=== PATIENT | female | born 1940 | race Caucasian/White ===

== ENCOUNTER 2024-06-02 09:21 | Emergency (ER) | payer MEDICARE, OTHER, SELFPAY ==
[2024-06-02 09:23] VITALS: BP 145/84
[2024-06-02 09:48] LABS: % Basophils 0.9 % (0-2); % Eosinophils 1.4 % (0-6); % Immature Granulocytes 0.4 % (0-0.5); % Lymphocytes 33.4 % (20.5-51.1); % Monocytes 8.1 % (1.7-9.3); % Neutrophils 55.8 % (42.2-75.2); Absolute Basophils 0.1 10^3/uL (0-0.2); Absolute Eosinophils 0.1 10^3/uL (0-0.7); Absolute Lymphocytes 1.9 10^3/uL (1.2-3.4); Absolute Monocytes 0.5 10^3/uL (0.1-0.6); Absolute Neutrophils 3.2 10^3/uL (1.4-6.5); Hematocrit 42.2 % (37.0-47.0); Hemoglobin 14.2 g/dL (12.0-16.0); Mean Corp Hgb Conc. 33.6 g/dL (33.0-37.0); Mean Corpuscular Volume 92.1 fL (81.0-99.0); Mean Platelet Volume 8.6 fL (7.4-10.4); Nucleated Red Blood Cells % 0 %; Platelet Count 280 10^3/uL (130-400); Red Blood Cell Count 4.58 10^6/uL (4.20-5.40); Red Cell Dist. Width 12.5 % (11.5-14.5); White Blood Cell Count 5.7 10^3/uL (4.8-10.8)
[2024-06-02 10:07] LABS: ALT (SGPT) 18 U/L (0-35); AST (SGOT) 27 U/L (14-36); Alkaline Phosphatase 79 U/L (38-126); Blood Urea Nitrogen 39 mg/dl (7-17); Calcium 9.1 mg/dl (8.4-10.2); Carbon Dioxide 25 mmol/L (22-30); Chloride 108 mmol/L (98-107); Glucose 108 mg/dl (70-99); Potassium 3.8 mmol/L (3.5-5.1); Sodium 138 mmol/L (135-145); Total Bilirubin 0.5 mg/dl (0.2-1.3); Total Protein 6.7 g/dl (6.3-8.2); eGFR 41.31
[2024-06-02 10:15] LABS: Troponin I < 0.012 ng/ml
[2024-06-02 11:16] VITALS: BP 105/73
--- NOTE | 2024-06-02 11:17 | ED.GENMED ---
History of Present Illness
General
Chief Complaint: Cardiac Symptoms
Source: patient and spouse
Exam Limitations: none
Time Seen by Provider: 06/02/24 10:57
Nursing documentation reviewed up to this point in time: agreed with
History of Present Illness
History of Present Illness:
83-year-old female presents emergency department due to chest tightness and feeling herself going to atrial fibrillation. She felt that until she arrived, and now feels better.
Past History
Past History
ED Past Medical History: Arrthythmia, Cancer (Bladder cancer) and HTN
ED Past Surgical History: Orthopedic (Shoulder) and Urological (Bladder)
Social History
Tobacco: Non-smoker
Alcohol: None
Drug: None
Personal:
Living: with family
Employment: Retired
Review of Systems
Review of Systems
Allergies reviewed?: Yes
All Other Systems: Not applicable
Constitutional: Reports no symptoms
EENT: Reports no symptoms
Respiratory: Reports no symptoms
Cardiac: Reports palpitations
ABD/GI: Reports no symptoms
: Reports no symptoms
Musculoskeletal: Reports no symptoms
Skin: Reports no symptoms
Neurological: Reports no symptoms
Endocrine: Reports no symptoms
Hematologic/Lymphatic: Reports no symptoms
Psychiatric: Reports no symptoms
Phy Exam
Physical Exam
Physical Exam:
Physical Exam
General: no apparent distress, not acutely ill
Neck: supple. no meningeal signs. normal posterior pharynx
Heart: s1/s2 regular rate and rhythm, no murmur. equal radial
pulses.
HEENT: Pupils equal round reactive to light, EOMI
Lungs: no acute respiratory distress. clear bilaterally
Abdomen: normal bowel sounds. not tender. no CVAT
Neuro: alert and oriented. no focal neurological deficits cranial nerves II through XII intact
Skin: no rash
Psychiatric: well kept. interactive and cooperative
Extremities: no edema. no calf tenderness. negative homans. good distal pulses
Course
Orders/Labs/Results
Orders:
Orders
06/02/24 09:27
Electrocardiogram (*1) Urgent
Reason for Study: Atrial Fibrillation
EKG- Treatment ONCE
06/02/24 09:34
Complete Blood Count/With Diff Urgent
Comprehensive Metabolic Panel Urgent
Troponin I Urgent
06/02/24 11:09
Cardiac Monitoring- Treatment ONCE
Abnormal Lab Results
06/02/24
09:34
Chloride 108 H mmol/L
(98-107)
BUN 39 H mg/dl
(7-17)
Creatinine 1.3 H mg/dL
(0.6-1.0)
Glucose 108 H mg/dl
(70-99)
06/02/24 09:34
06/02/24 09:34
Vital Signs
Initial and Last Documented VS:
Initial Vital Signs
Temp Pulse Resp BP Pulse Ox
97.9 F 103 16 145/84 98
06/02/24 09:23 06/02/24 09:23 06/02/24 09:23 06/02/24 09:23 06/02/24 09:23
Last Documented Vital Signs
Temp Pulse Resp BP Pulse Ox
97.9 F 103 16 105/73 99
06/02/24 09:23 06/02/24 09:23 06/02/24 09:23 06/02/24 11:16 06/02/24 11:17
MDM/Problems Addressed
Differential Diagnosis Includes:
Atrial flutter
MDM/Problems Addressed:
83-year-old female with paroxysmal atrial flutter. Spontaneously converted. Stable for discharge. Discussed with Dr. Rowe, who recommends follow-up with Dr. Cardenas as scheduled and no medication changes.
Chronic conditions affecting care: Arrhythmia
Acute Exacerbation and/or Progression of Chronic Illness: Arrhythmia
*Pulse Oximetry
Patient hypoxic: no
*EKG
Interpreted by ED Provider?: Yes
EKG Intrepretation Date: 06/02/24
EKG Intrepretation Time: 09:29
Interpretation: abnormal
Comparison EKG: no comparison EKG present
Heart Rate: 105
Rate: tachycardiac
Rhythm: atrial flutter
[place]: normal axis
Interval: normal interval
QRS Pattern: normal QRS
Ischemia: non-specific ST changes
*E Commerce Architect Interpretation
Rate: normal
Interpretation: normal
Heart Rate: 60
Rhythm: sinus
*Critical Care Note
Total Time (30-74mins, 75-104mins- exclusive of procedures): 30
comment:
Critical care statement: A total of 30 minutes of critical care time was provided for this patient. This includes management of unstable vital signs, evaluation of the patient at bedside, reviewing the patient's pertinent medical records, discussion
with consultants, review of old EKGs and review of pertinent medical records. This time with separate from time utilized to perform the aforementioned documented procedures
Patient Management
Social determinants of health affecting care: Living situation and Strong social support
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 Rowe recommends discharge and follow-up)
Escalation/DeEscalation of care consider admission/obs:
Admit not indicated
ED Attending Note
-
Portions of this chart may have been created with voice recognition software.� Occasional wrong word or��sound alike� substitutions may have occurred due to the inherent limitations of voice recognition software.
Discharge Plan
Departure
Patient Disposition: Home (Routine Discharge)
Date of Disposition: 06/02/24
Time of Disposition: 11:36
Patient with high blood pressure during this ER visit?: No
Condition: Good
Discharge Problem:
Paroxysmal atrial fibrillation
Instructions: Atrial fibrillation and atrial flutter - ED discharge instructions
Referrals:
Norman Cardenas MD [Active] - Keep scheduled appt
Interventions
Interventions:
*Risk Screen - Suicide Last Done: 06/02/24 09:23
*General Assessment Last Done: 06/02/24 11:18
*Neglect/Abuse Screening Last Done: 06/02/24 09:23
*ED COVID-19 Vaccine History Last Done: 06/02/24 11:18
*Nursing Disposition Last Done: 06/02/24 12:02
ED- Pulmonary Assessment Last Done: 06/02/24 11:19
ED- Cardiac Assessment Last Done: 06/02/24 11:19
Discharge Date and Time
Discharge Date/Time: 06/02/24 12:04
Print Language: AUSTRALIAN
== END 2024-06-02 12:04 | disposition home or self-care (01) ==
LOC: EMR 09:21
PROVIDERS: Emergency Medicine; EMERGENCY PHYSICIAN Emergency Medicine; FAMILY PHYSICIAN Family Medicine
DX: I48.0 Paroxysmal atrial fibrillation (principal)
CPT/HCPCS: 99291; 80053; 84484; 85025; 93005

== ENCOUNTER → 2024-07-10 14:33 | Outpatient (REF) | payer MEDICARE, OTHER, SELFPAY | LOC: RCS 14:33 | PROVIDERS: ATTENDING PHYSICIAN Internal Medicine; FAMILY PHYSICIAN Family Medicine | DX: I48.0 Paroxysmal atrial fibrillation (principal); I48.3 Typical atrial flutter; I10 Essential (primary) hypertension; I44.0 Atrioventricular block, first degree | CPT/HCPCS: 93306 ==

== ENCOUNTER → 2024-08-30 10:13 | Outpatient (REF) | payer MEDICARE, OTHER, SELFPAY ==
[2024-08-30 11:18] LABS: % Basophils 0.8 % (0-2); % Immature Granulocytes 0.4 % (0-0.5); % Lymphocytes 32.5 % (20.5-51.1); % Monocytes 9.1 % (1.7-9.3); % Neutrophils 56.2 % (42.2-75.2); Absolute Eosinophils 0.1 10^3/uL (0-0.7); Absolute Lymphocytes 1.6 10^3/uL (1.2-3.4); Absolute Monocytes 0.4 10^3/uL (0.1-0.6); Absolute Neutrophils 2.7 10^3/uL (1.4-6.5); Hematocrit 39.5 % (37.0-47.0); Mean Corp Hgb Conc. 32.9 g/dL (33.0-37.0); Mean Corpuscular Hgb 31.1 pg (27.0-31.0); Mean Corpuscular Volume 94.5 fL (81.0-99.0); Nucleated Red Blood Cells % 0 %; Platelet Count 293 10^3/uL (130-400); Red Blood Cell Count 4.18 10^6/uL (4.20-5.40); Red Cell Dist. Width 13.5 % (11.5-14.5); White Blood Cell Count 4.8 10^3/uL (4.8-10.8)
[2024-08-30 12:10] LABS: ALT (SGPT) 20 U/L (0-35); AST (SGOT) 25 U/L (14-36); Alkaline Phosphatase 66 U/L (38-126); Blood Urea Nitrogen 17 mg/dl (7-17); Calcium 9.5 mg/dl (8.4-10.2); Carbon Dioxide 26 mmol/L (22-30); Chloride 110 mmol/L (98-107); Glucose 91 mg/dl (70-99); Potassium 4.3 mmol/L (3.5-5.1); Sodium 141 mmol/L (135-145); Total Bilirubin 0.7 mg/dl (0.2-1.3); Total Protein 6.4 g/dl (6.3-8.2); eGFR > 60.00
== END ==
LOC: SDSPAT 10:13
PROVIDERS: ATTENDING PHYSICIAN Internal Medicine Cardiovascular Disease; FAMILY PHYSICIAN Family Medicine; OTHER PHYSICIAN Internal Medicine
DX: I48.0 Paroxysmal atrial fibrillation (principal)
CPT/HCPCS: 36415; 80053; 85025; 86850; 86900; 86901; 93005

== ENCOUNTER 2024-09-12 05:47 | Day surgery (SDC) | payer MEDICARE, OTHER, SELFPAY ==
[2024-08-30 10:40] VITALS: BMI 21.6
[2024-09-12] VITALS (16 sets, daily range): BP systolic 89–155; BP diastolic 42–62
--- NOTE | 2024-09-12 11:02 | ITS.CL.ABL ---
Biological Science Technician Fish - Ablation
Ablation
Procedure Report:
AFIB / A flutter ablation:
Ms. Felder is a very pleasant 84 yr old woman with medical history significant for symptomatic paroxysmal atrial fibrillation and atrial flutter is here in the EP lab for atrial fibrillation / flutter ablation
Date of Procedure:
09/12/2024
Indications:
Symptomatic Paroxysmal atrial fibrillation / atrial flutter
Pre-Operative Diagnosis:
Persistent atrial fibrillation / atrial flutter
Post-Operative Diagnosis:
Paroxysmal atrial fibrillation / atrial flutter
Procedure Performed:
Atrial fibrillation ablation with wide area circumferential ablation (WACA) approach for pulmonary vein isolation
Atrial flutter ablation with cavo-tricuspid isthmus line block formation
Performing Physician:
Sriram Dougherty MD
Assistants:
EP staff
Anesthesia:
See anesthesia records
Detailed Description of the Procedure:
Written informed consent was obtained from the patient after a full explanation of the risks and benefits of the procedure including the risks of sedation and anesthesia.
The patient was brought to the electrophysiology laboratory in stable condition in fasting state. Continuous electrocardiographic and hemodynamic monitoring was initiated.
The initial rhythm was normal sinus rhythm.
The procedure site was meticulously prepared with surgical scrub and allowed to dry with no pooling. Sterile draping was applied to cover the procedure site. The image intensifier was draped with sterile bag and positioned over the patient. After
infusion of local anesthetic, vascular access was obtained under ultrasound guidance and sheaths were placed over guide wire as detailed below.
The images of the ultrasound of the femoral vessels were stored in patient chart.
Sheath and Catheter Placement:
In the right femoral vein, an 8-Paragu[place] sheath was placed under ultrasound guidance for use during the ablation procedure. And mapping catheter was intermittently placed in the high right atrium, right ventricle, left atrium and left ventricle. In
the left femoral vein, a 9-Fr long sheath was placed for use during intracardiac echo procedure.
The sheaths were upgraded as needed during the case. Intracardiac catheters were positioned using direct fluoroscopic guidance.� ICE catheter was placed in RA. The following catheters / sheaths were placed
Sheaths:
��������� Agilis sheath in right femoral vein upgraded from 8Fr in right femoral vein
��������� 9Fr in left femoral vein
��������� 7Fr in right femoral vein
Catheters:
��������� The Affera Sphere 9 catheter -bidirectional D/F� - at locations of HRA, RV, LA and LV.
��������� ICE catheter -AccuNav -� at locations of RA, SVC, and RV.
��������� Bard decapolar catheter � RA and CS
Heparin was initiated after the access was obtained.
Intracardiac ECHO:
An 8-[place] AcuNav intracardiac ECHO (ICE) probe was advanced through the 9-[place]aguayan sheath in the left femoral vein into the right atrium under fluoroscopic and ICE ultrasound image guidance and a baseline ECHO study was performed. The left atrial
size was dilated. There was trace tricuspid regurgitation and moderate mitral regurgitation. The aortic valve was grossly normal. There was normal left ventricular size and function. There is a trace pericardial effusion. The LISA has baseline normal
velocities. The pulmonary veins had good flow identified.
During the procedure, ICE was used for monitoring of complications, guidance of trans-septal puncture, monitor the catheter position and tracking ablation lesions. No change in the pericardial space noted throughout the procedure.
Electroanatomic mapping of the right atrium:
A J-tipped guidewire was advanced through the 8-[place]ayan sheath in the right femoral vein into the superior vena cava under fluoroscopic and ICE guidance. The 8-[place] sheath was exchanged for an Agilis sheath which was advanced into the superior vena
cava.
Using the Sphere 9 Affera catheter advanced through Agilis sheath into the right atrium, an electroanatomic map (EAM) of the right atrium was created using the ev-sociala� mapping system with Backdoor-1 software mapping system.
There was borderline long HV conduction noted at baseline at 45 ms.
Ablation # 1: Typical Atrial Flutter Ablation:
Patient had a hx of typical atrial flutter. The CTI ablation was done using radiofrequency with Affera sphere -9 ablation, open irrigation, force-sensing bidirectional ablation catheter in the cavotricuspid isthmus from the tricuspid annulus to the
IVC ridge. �
Once the ablation catheter reach near the IVC, the ablation energy was changed to pulsefield.
��������������� -Bidirectional block was confirmed across the CTI line with differential pacing.
��������������� -Double potentials were spaced greater than 98 msec apart.
��������������� -The conduction time across the CTI line from proximal CS pacing was 164 msec.
��������������� -EAM of the right atrium was obtained with coronary sinus pacing and showed a line of block at the CTI.
��������������� -The time interval just lateral to the ablation lesions was 164 msec and the lateral wall was 112 msec
��������������� - All these maneuvers confirmed the block at the CTI line.
- Post ablation HV interval was unchanged at 45msec
Then attention was given to atrial fibrillation ablation.
Trans-septal Puncture:
Heparin was initiated and infused to maintain appropriate ACT. A J-tipped guidewire was advanced through into the superior vena cava under fluoroscopic and ICE guidance. The Agilis sheath was advanced into the superior vena cava. An [employer]
transseptal access system was utilized to perform the trans-septal puncture. The apparatus was withdrawn until it was in contact with the fossa ovalis. The position was adjusted based on fluoroscopy and ultrasound images from ICE. Under
fluoroscopic, hemodynamic and ICE ultrasound guidance, left atrium was cannulated by advancing the needle. Once atrial septum was cannulated, the needle was pulled back and the guide wire was advanced through the needle into the left atrium. The
guide wire was advanced into the left superior pulmonary vein. Both the sheath and the dilator was advanced into the left atrium. The dilator with the needle was withdrawn. Blood was aspirated from the Agilis sheath and arterial blood confirmed. The
sheath was flushed. Saline injection noted into the left atrium on ICE. The waveform of the LA pressure was recorded. The mapping catheter was advanced in the Agilis sheath into the left pulmonary vein.
3D Electroanatomic Mapping:
Using the Sphere 9 Affera catheter advanced through Agilis sheath into the left atrium, an electroanatomic map (EAM) of the left atrium was created using ev-sociala� mapping system with eleni software. The map was used for localization of catheter
position and tacking of ablation lesions. The EAM of the left atrium showed a total of 4 PVs with two left with a common trunk and the two right sided pulmonary veins with all electrically connected to the body the LA. It showed no significant scar
on the posterior wall of the LA. The LA was dilated in size.
Following the EAM, preparation were made for ablation.
Ablation:
Ablation # 2: Pulmonary vein Isolation:
Pulsed field ablation was performed using an open irrigation, bidirectional, contact sensing, dual energy ablation catheter (ev-sociala sphere -9) by completing the circumferential lesions around the left and right pulmonary veins achieving pulmonary
vein isolation.
Confirmation of the PVI and bidirectional block:
Following achievement of entrance block at the pulmonary veins, pacing from the Sphere 9 affera catheter in each of the four veins at 20 milliamps for 4 milliseconds showed entrance and exit block.
The LA was mapped with The ev-sociala� mapping system with Backdoor-eVariant software in sinus rhythm confirming the line of block at the ablation lesions lines.
�
EP study:
Sinus Node Function: The sinus node functions are within acceptable normal range.
Atrioventricular Patricia Function: �Post ablation HV interval was unchanged at 45 msec
Procedure End
ICE study was done again that showed no epicardial accumulation. No complications noted.
Following the completion of the EP study, catheters were removed. Protamine 40 mg was given at the end of the procedure and ACT was checked repeatedly. The sheaths were removed and hemostasis achieved with Figure of 8 suture and manual compression
after acceptable ACT is achieved.
Left atrial Pressure:
Pre-Procedure: Mean LA pressure was 9mmHg
Post-Procedure: Mean RA pressure was 6mHg
Estimated Blood loss:
<10 cc
Specimens Removed:
None.
Implants / Devices:
None
Urine output:
None
Packs / Drains/ Tubes:
None
Instrument / Sponge Count Correct:
Yes
Complications of the Procedure:
None
Condition of Patient at Time of Transfer:
Hemodynamically stable with no neurological or vascular compromise.
Summary:
��������� Successful atrial fibrillation ablation with circumferential bidirectional line of block at pulmonary venin antra (Pulmonary vein isolation), atrial flutter ablation with cavo-tricuspid isthmus line block formation.
Figures from the Procedure:
Figure 1: The electroanatomic mapping (EAM) of the left atrium with bipolar voltage (purple indicates normal electrical activity with red as no myocardial muscle electric activity indicating a line of block or scar.
[2024-09-12 14:47] LABS: ACT-LR - POC > 397 Seconds (116-155)
[2024-09-12 14:47] LABS: ACT-LR - POC > 397 Seconds (116-155)
--- NOTE | 2024-09-12 15:05 | W.PN.UPDATE ---
Update Note
Progress Note Update
Pt seen post PFA. Right groin site without ht/bleeding, non tender. Post EKG NSR 75, no acute changes. Resume Eliquis tonight at usual time. Followup at [facility] as scheduled. Home today if groin site/tele remain stable.
== END 2024-09-12 15:58 | disposition home or self-care (01) ==
LOC: CATH 05:47
PROVIDERS: ATTENDING PHYSICIAN Internal Medicine Cardiovascular Disease; FAMILY PHYSICIAN Family Medicine; OTHER PHYSICIAN Internal Medicine
DX: I48.19 Other persistent atrial fibrillation (principal); I48.3 Typical atrial flutter; E03.9 Hypothyroidism, unspecified; I12.9 Hypertensive chronic kidney disease with stage 1 through stage 4 chronic kidney disease, or unspecified chronic kidney disease; N18.30 Chronic kidney disease, stage 3 unspecified; Z79.01 Long term (current) use of anticoagulants; Z79.899 Other long term (current) drug therapy; Z85.51 Personal history of malignant neoplasm of bladder; Z87.891 Personal history of nicotine dependence; Z98.890 Other specified postprocedural states; R42 Dizziness and giddiness
CPT/HCPCS: C1769; C1894; C1730; C1733; C1766; C1892; C1759; 85347; 86900; 86901; 93005; 93655; 93656

== ENCOUNTER 2024-09-14 12:54 | Emergency (ER) | payer MEDICARE, OTHER, SELFPAY ==
[2024-09-14 12:59] VITALS: BP 143/89
--- NOTE | 2024-09-14 14:57 | ED.GENMED ---
History of Present Illness
General
Chief Complaint: Vascular Symptoms
Source: patient and spouse
Time Seen by Provider: 09/14/24 14:36
History of Present Illness
History of Present Illness:
84-year-old female presents emergency department with increasing bruising at the right femoral site where she had an ablation performed on Wednesday. She denies any complaints otherwise. She denies active bleeding. Patient is on a DOAC.
Past History
Past History
ED Past Medical History: Arrthythmia, Cancer (Bladder cancer) and HTN
ED Past Surgical History: Orthopedic (Shoulder) and Urological (Bladder)
Social History
Tobacco: Non-smoker
Alcohol: None
Drug: None
Personal:
Living: with family
Employment: Retired
Phy Exam
Physical Exam
Physical Exam:
GENERAL: Alert , in no apparent distress
EYE: pupils equal and reactive
NECK: Supple, no significant adenopathy.
ENT: o/p clr, mmm.
CARDIAC: Regular rate and rhythm .
LUNGS: Clear breath sounds bilaterally, no acute respiratory distress, no wheezes/rales/rhonchi
ABDOMEN: Soft, without focal tenderness, no r/g, no cvat
NEUROLOGICAL: Alert and oriented, no focal neuro deficits
SKIN: Warm and dry, skin intact. Normal femoral and distal pulses noted. There is ecchymosis noted at the right femoral area extending to the medial distal femoral area. No pulsatile mass or bruit noted. No redness warmth streaking fluctuance.
Full range of motion of the extremity without difficulty or pain.
MUSCULOSKELETAL: No edema, well perfused.
PSYCH: Normal and appropriate interaction.
Course
Orders/Labs/Results
Orders:
Orders
09/14/24 13:03
US Groin (vascular exam) RT Urgent
Comment:
Reason For Exam: swelling 2 days post arterial access
Vital Signs
Initial and Last Documented VS:
Initial Vital Signs
Temp Pulse Resp BP Pulse Ox
97.5 F 70 16 143/89 98
09/14/24 12:59 09/14/24 12:59 09/14/24 12:59 09/14/24 12:59 09/14/24 12:59
Last Documented Vital Signs
Temp Pulse Resp BP Pulse Ox
97.5 F 70 16 143/89 98
09/14/24 12:59 09/14/24 12:59 09/14/24 12:59 09/14/24 12:59 09/14/24 12:59
Update Note
Update Note:
Patient presents to the Emergency Department with increasing bruising
Number and Complexity of Problems Addressed at the Encounter
� Chronic conditions affecting care:
� Acute Exacerbation and/or Progression of Chronic Illness:
� Differential Diagnosis includes: But not limited to pseudoaneurysm, cellulitis/abscess, acute blood loss, hematoma, etc. etc.
Amount and/or Complexity of Data to be Reviewed and Analyzed
� I performed an independent evaluation of and my interpretation is:
EKG:
CT:
Xrays:
Laboratory Studies:
Other:
� Review of other/old records reveals: Notes from patient's procedure 2 days ago reviewed by me
� Clinical information was obtained by an independent historian: who was at bedside
� Prescriptions/Medications Considered but not given:
� Further testing considered but not performed:
Risk of Complications and/or Morbidity or Mortality of Patient Management
� Social determinants of health affecting care:
� Discussion with other providers (PCP, Hospitalists, Consultants, etc):
� Escalation of care including admission/observation vs risk of discharge considered: Patient hemodynamically stable, no pain, no active bleeding, no suggestion of infection. Case discussed with her machine stemmer who performed
the procedure, Dr. IVAN ANGELO AM, pictures sent. He agrees patient stable for discharge, does not recommend further testing such as H&H. Does recommend that we hold her DOAC tonight. Advised this will take 4 to 6 weeks to fully resolve. All
discussed with patient including reasons return to the ER and importance of close follow-up.
ED Attending Note
-
Portions of this chart may have been created with voice recognition software.� Occasional wrong word or��sound alike� substitutions may have occurred due to the inherent limitations of voice recognition software.
Discharge Plan
Departure
Patient Disposition: Home (Routine Discharge)
Date of Disposition: 09/14/24
Time of Disposition: 15:04
Patient with high blood pressure during this ER visit?: Yes
Condition: Good
Discharge Problem:
Hematoma
Instructions: BLOOD PRESSURE, Hematoma
Prescriptions:
No Action
bisoprolol fumarate 10 mg tablet
10 mg PO DAILY
flecainide 100 mg tablet
100 mg PO BID PRN (Reason: afib)
olmesartan 40 mg tablet
40 mg PO HS
Eliquis 2.5 mg Tablet
2.5 mg PO BID
PreserVision AREDS-2 250-90-40-1 mg Capsule
1 tab PO AMHS
Activity Restrictions/Additional Instructions:
PLEASE HOLD YOUR ELIQUIS TONIGHT, AND THEN RESUME TOMORROW. IF YOU DEVELOP DIZZINESS, CHEST PAIN, TROUBLE BREATHING, BLEEDING, OR OTHER WORRISOME SIGNS, GO TO THE ER IMMEDIATELY!
Interventions
Interventions:
ED-Skin Assessment Last Done: 09/14/24 14:54
Discharge Date and Time
Print Language: MARSHALLESE
== END 2024-09-14 15:34 | disposition home or self-care (01) ==
LOC: EMR 12:54
PROVIDERS: EMERGENCY PHYSICIAN Emergency Medicine; FAMILY PHYSICIAN Family Medicine
DX: R58 Hemorrhage, not elsewhere classified (principal); R60.0 Localized edema; R03.0 Elevated blood-pressure reading, without diagnosis of hypertension; Z98.890 Other specified postprocedural states; I10 Essential (primary) hypertension; Z85.51 Personal history of malignant neoplasm of bladder
CPT/HCPCS: 99284; 93926